=== PATIENT | female | born 1995 | race American Indian/Alaskan Native ===

== ENCOUNTER 2017-03-28 12:51 | Emergency (ER) | payer MEDICAID ==
[2017-03-28 12:52] VITALS: BMI 26.5
[2017-03-28 13:15] VITALS: BP 120/84; PULSE 85; RESP 18; TEMP 98.7; O2SAT 100
[2017-03-28] MEDS ORDERED: Amoxicillin-Clav 875-125 mg Tab PO STA (14:00)
--- NOTE | 2017-03-28 14:03 | C.PDOC ---
History Of Present Illness 21 yo female w/o significant PMHx come in for evaluation of nasal congestion, runny nose, sore throat for past few days. Pt sts, since yesterday, developed Right earache, chills. Otherwise, pt denies fever, headache, dizziness, ear discharge, vertigo, drooling, dysphagia, dyspnea, SOB, wheezing, abd. pain, N/V/ D, UTI sx. Ambulate to ED for evaluation, not in any apparent distress. Time Seen by Provider: 03/28/17 13:36 Chief Complaint (Nursing): ENT Problem History Per: Patient History/Exam Limitations: None Onset/Duration Of Symptoms: Days Past Medical History Reviewed: Historical Data, Nursing Documentation, Vital Signs Vital Signs: Last Vital Signs Temp 98.7 F 03/28/17 13:14 Pulse 85 03/28/17 13:14 Resp 18 03/28/17 13:14 BP 120/84 03/28/17 13:14 Pulse Ox 100 03/28/17 14:18 - [facility] Procedures TETANUS TOXOID ADMINIST (11/03/13) Family History: States: No Known Family Hx - Social History Hx Tobacco Use: Yes Hx Alcohol Use: No Hx Substance Use: No - Immunization History Hx Tetanus Toxoid Vaccination: No Hx Influenza Vaccination: No Hx Pneumococcal Vaccination: No Review Of Systems Except As Marked, All Systems Reviewed And Found Negative. Constitutional: Negative for: Fever ENT: Positive for: Ear Pain (Right earache ), Nose Discharge, Nose Congestion, Throat Pain (Sore throat ). Negative for: Ear Discharge Respiratory: Negative for: Shortness of Breath, Wheezing Gastrointestinal: Negative for: Nausea, Vomiting, Abdominal Pain, Diarrhea Neurological: Negative for: Headache, Dizziness Physical Exam - Physical Exam Appears: Well, Non-toxic, No Acute Distress Skin: Normal Color, Warm, Dry, No Rash Eye(s): bilateral: PERRL Ear(s): Left: TM Obscured By Wax, Right: TM Erythema Nose: No Discharge (B/L nasal congestion ) Oral Mucosa: Moist, No Drooling Throat: Erythema (B/L), No Exudate, No Drooling, Other (uvula midline, no edema. ) Neck: Supple, Other ((-) meningeal sign) Cardiovascular: Rhythm Regular Respiratory: No Decreased Breath Sounds, No Accessory Muscle Use, No Stridor, No Wheezing Gastrointestinal/Abdominal: Soft, No Tenderness, No Distention, No Guarding Back: No CVA Tenderness Extremity: No Pedal Edema Neurological/Psych: Oriented x3, Normal Speech ED Course And Treatment O2 Sat by Pulse Oximetry: 100 (RA ) Pulse Ox Interpretation: Normal Progress Note: On re-evaluation, pt is afebrile, hemodynamicaly stable. non- toxic. Ambulatory in ED with stable gait. PulseOx 100% RA. Neck: (-) meningeal sign. ENT: exam c/w left otitis media, mild pharyngitis. Lungs: CTA B/L, BS equal B/L. Abd: benign. Back: (-) CVA tenderness. Neuorlogicaly intact. Pt has clinical findings c/w otitis media, left. Pt advised and ref. [facility], E[facility] in 2-3 days for re-evaluation. Return to ED if any worsening or new changes. Medical Decision Making Medical Decision Making: PLAN: * Augmentin PO * Motrin PO * Prednisone PO Disposition Counseled Patient/Family Regarding: Diagnosis, Need For Followup, Rx Given - Disposition Referrals: Deny Chow MD [Staff Provider] - Disposition: HOME/ ROUTINE Disposition Time: 14:01 Condition: STABLE Additional Instructions: Encourage fluids keep Left ear dry, avoid water exposure Follow up with PMD in 2-3 days for re-evaluation. Return to ED if any worsening or new changes. Prescriptions: Amoxicillin/Clavulanate [Augmentin 875 MG-125 MG] 1 tab PO BID #14 tab Prednisone [Deltasone] 20 mg PO DAILY #3 tablet Instructions: Otitis Media (ED) Forms: [employer] ([place]an) - Clinical Impression Clinical Impression: Otitis media - PA / GRADER MARKER / Resident Statement MD/DO has reviewed & agrees with the documentation as recorded. - Scribe Statement The provider has reviewed the documentation as recorded by the Scribe Jennifer Rebollar All medical record entries made by the Saminaibe were at my direction and personally dictated by me. I have reviewed the chart and agree that the record accurately reflects my personal performance of the history, physical exam, medical decision making, and the department course for this patient. I have also personally directed, reviewed, and agree with the discharge instructions and disposition.
[2017-03-28] MEDS ORDERED: Amoxicillin-Clav 875-125 mg Tab PO ONE (14:15)
== END 2017-03-28 14:23 | disposition home or self-care (01) ==
LOC: C.ER 12:51
DX: H66.91 Otitis media, unspecified, right ear (principal)